=== PATIENT | female | born 1990 | race African-American/Black ===

== ENCOUNTER 2024-05-05 01:56 | Emergency (ER) | payer MEDICAID ==
[~2024-05-05] VITALS: Ht 165.1 cm; Wt 61.4 kg
[2024-05-05] MEDS: SODIUM CHLORIDE 0.9% 1,000 ML IV ONE (02:58)
[2024-05-05] MEDS: METOCLOPRAMIDE HCL 5 MG/ML 2 ML VIAL IVP ONE (02:59)
[2024-05-05 03:01] LABS: EOSINOPHILS % (AUTO) 0.6 % (1.0-6.0); HEMATOCRIT 40.2 % (36-46); LYMPHOCYTES # (AUTO) 1.4 K/uL (1.0-4.8); LYMPHOCYTES % (AUTO) 51.2 % (22.0-44.0); MEAN CORPUSCULAR HEMOGLOBIN 28.6 pg (26.0-34.0); MEAN CORPUSCULAR HGB CONC 32.5 G/dL (31.0-37.0); MEAN CORPUSCULAR VOLUME 88 fL (80-100); MONOCYTES # (AUTO) 0.5 K/uL (0.1-1.0); MONOCYTES % (AUTO) 16.2 % (2.0-9.0); NEUTROPHILS # (AUTO) 0.8 K/uL (1.8-7.7); PLATELET COUNT (AUTO) 347 K/uL (150-450); RED BLOOD CELL COUNT(AUTO) 4.56 MIL/uL (4.00-5.20); RED CELL DISTRIBUTION WIDTH 14.3 % (11.5-14.5); WHITE BLOOD COUNT (AUTO) 2.8 K/uL (4.5-11.0)
[2024-05-05 03:19] LABS: ANION GAP 11 mmol/L (8-16); CALCIUM, TOTAL 9.4 mg/dL (8.8-10.5); CARBON DIOXIDE 27 mmol/L (22-29); CHLORIDE 102 mmol/L (98-107); CREATININE 0.68 mg/dL (0.60-1.30); GLOMERULAR FILTR. RATE CALC > 60 mL/min (>60); GLUCOSE,RANDOM 75 mg/dL (70-110); SODIUM SERUM 140 mmol/L (136-145); UREA NITROGEN, BLOOD 10 mg/dL (7-18)
[2024-05-05 03:30] LABS: APPEARANCE,URINE CLEAR (CLEAR); BILIRUBIN,URINE NEGATIVE (NEGATIVE); COLOR,URINE LIGHT YELLOW (YELLOW); GLUCOSE, URINE (UA) NEGATIVE (NEGATIVE); KETONES,URINE NEGATIVE (NEGATIVE); LEUKOCYTE ESTERASE ,URINE NEGATIVE (NEGATIVE); NITRATE,URINE NEGATIVE (NEGATIVE); OCCULT BLOOD,URINE NEGATIVE (NEGATIVE); PH,URINE 6.5 (5.0-8.0); PROTEIN,URINE NEGATIVE (NEGATIVE); SPECIFIC GRAVITIY, URINE 1.015 (1.003-1.030); UROBILINOGEN,URINE <=1.0 mg/dL (<=1.0)
[2024-05-05 05:44] VITALS: BP 123/91; PULSE 86; RESP 16; TEMP 98.3; O2SAT 100
[2024-05-05] MEDS: POTASSIUM CHLORIDE 20 MEQ ER TABLET PO ONE (06:39)
[2024-05-05] MEDS: ONDANSETRON HCL 4 MG/2 ML VIAL IVP ONE ×2 (06:39→08:03)
[2024-05-05] MEDS: ACETAMINOPHEN 500 MG TABLET PO ONE (06:45)
[2024-05-05] MEDS ORDERED: PNV1CAPS PO (08:10)
[2024-05-05] MEDS ORDERED: DOXY1TAB3 PO (08:10)
== END 2024-05-05 08:30 | disposition home or self-care (01) ==
LOC: EMS 01:56
DX: O21.0 Mild hyperemesis gravidarum (principal); O26.891 Other specified pregnancy related conditions, first trimester; Z3A.01 Less than 8 weeks gestation of pregnancy
CPT/HCPCS: 99285; 96374; 76801; 96361; 96375; 80048; 81003; 84703; 85025; 36415; 96376; J2765; J2405; J7030